=== PATIENT | male | born 1995 | race Caucasian/White ===

== ENCOUNTER 2018-05-08 19:46 | Emergency (ER) | payer BC, MEDICAID ==
[~2018-05-08] VITALS: Wt 82.2 kg
[2018-05-08] MEDS ORDERED: LIDOCAINE 1%/EPI 30 ML INJ INJ STA (20:03)
[2018-05-08] MEDS ORDERED: DIPHTH/TET/ACEL PERTUSS (ADULT) 0.5 ML VIAL IM* ONE (20:30)
[2018-05-08] MEDS ORDERED: LIDOCAINE 1%/EPI (MDV) 50 ML INJ INJ ONE (20:30)
[2018-05-08] MEDS ORDERED: LIDOCAINE 1%/EPI (1:100,000) (MDV) 20 ML INJ ONE (20:30)
[2018-05-08] MEDS ORDERED: CEPHALEXIN 500 MG CAP PO ONE (20:30)
[2018-05-08] MEDS ORDERED: CEPH-443 PO (21:30)
--- NOTE | 2018-05-08 21:41 | ERD ---
ER Documentation Chief Complaint Chief Complaint LAC TO LEFT CALF AFTER CLIMBING FENCE HPI 23-year-old male presents the emergency department presenting with a laceration to his left calf after climbing a fence and getting his calf stuck through the metal wire. Patient denies any restricted range of motion however he does have pain with certain motions. He does not remember his last tetanus. States bleeding is controlled. ROS All systems reviewed and are negative except as per history of present illness. Medications Home Meds Active Scripts Cephalexin* (Keflex*) 500 Mg Capsule, 500 MG PO QID for 7 Days, CAP Prov:CHANTAL ESPOSITO PA-C 05/08/18 Allergies Allergies: Coded Allergies: No Known Allergy (Unverified , 05/08/18) PMhx/Soc Medical and Surgical Hx: pt denies Medical Hx, pt denies Surgical Hx Hx Alcohol Use: No Hx Substance Use: No Hx Tobacco Use: No Smoking Status: Never smoker Physical Exam Vitals Vital Signs Date Temp Pulse Resp B/P (MAP) Pulse Ox O2 O2 Flow FiO2 Time Delivery Rate 05/08/18 97.6 102 18 123/63 97 19:49 (83) Physical Exam General: WD/WN, in no apparent distress, non-toxic appearing HENT: NC/AT Eyes: Conjunctiva normal Neck: Supple Pulm: Clear to auscultation, normal labored breathing; no wheezing/rales/rhonchi heard CV: Good capillary refill GI: Non-distended, no guarding Back: No masses Ext: Patient is able to move all toes, he had full range of motion of plantar flexion, extension. Full range of motion of knee. Sensation was intact. Neuro: Moves on all fours Skin: No foreign body noted, 6cm deep laceration to the left posterior middle leg Psych: Normal mood Results 24 hrs Current Medications Medications Dose Sig/Gabriela Start Time Status Last (Trade) Ordered Route PRN Stop Time Admin Dose Reason Admin Cephalexin 500 mg ONCE ONCE 05/08/18 DC 05/08/18 (Keflex) PO 20:30 20:18 05/08/18 20:31 Diphtheria/ 0.5 ml ONCE ONCE 05/08/18 DC 05/08/18 Tetanus/Acell IM* 20:30 20:18 Pertussis 05/08/18 (Adacel) 20:31 Lidocaine/ 50 ml ONCE ONCE 05/08/18 DC Epinephrine INJ 20:30 (Xylocaine 05/08/18 1%/ Epi 20:30 (Mdv)) Lidocaine/ 30 ml ONCE STAT 05/08/18 DC Epinephrine INJ 20:03 (Xylocaine 05/08/18 1%/ Epi 20:05 (Pf)) Lidocaine/ 40 ml ONCE ONCE 05/08/18 DC Epinephrine INJ 20:30 (Xylocaine 05/08/18 1%/ Epi 20:31 (Mdv) 20 ml) Procedures/MDM MDM: 23-year-old male patient presents to the ER with a laceration to the left posterior middle leg. My clinical suspicion for fracture, nerve/tendon/arterial injury, foreign body is low due to physical examination. In the ED, patient was given TDAP and prepared for wound closure. Procedure listed below.hemodynamically stable and neurovascularly intact pre and post treatment. Prescription keflex was given. 40-hour wound evaluation. Discussed to return to this facility or primary care physician in 10-14 days for suture removal. Discussed to return to the ER for any signs of infection or if condition worsens. Patient expressed agreement and understanding of the plan. PROCEDURE NOTE: Consent was obtained. Patient was positioned appropriately. Copious amount of normal saline was used for irrigation. Approximately 30cc of lidocaine with epinephrine was used as a local anesthetic. Patient was sterile draped with wound exposed. Wound was closed with good approximation with the absorbable 4-0 Vicryl sutures and 12 3-0 and 4-0 Prolene simple interrupted sutures. Procedure tolerated without complications. Departure Diagnosis: Primary Impression: Laceration Condition: Stable Patient Instructions: Laceration, Extrem (Suture, Staple, Or Tape) Referrals: NO PRIMARY,CARE PHYSICIAN (PCP) Additional Instructions: Follow up in 2 days in your clinic for wound check. Follow up with your physician to remove the stitches in 10-14 days. Take all medicines as directed. CHANTAL ESPOSITO PA-C May 08, 2018 21:41
[2018-05-08 21:48] VITALS: BP 115/57; PULSE 87; RESP 19
== END 2018-05-08 21:48 | disposition home or self-care (01) ==
LOC: FTE 19:46
DX: S81.812A Laceration without foreign body, left lower leg, initial encounter (principal); W26.8XXA Contact with other sharp object(s), not elsewhere classified, initial encounter; Y92.9 Unspecified place or not applicable; Z23 Encounter for immunization
CPT/HCPCS: 12002; 73590; 90471; 90715; Z7502; Z7610

== ENCOUNTER 2018-07-20 09:05 | Emergency (ER) | payer MEDICAID, OTHER ==
[~2018-07-20] VITALS: Ht 177.8 cm; Wt 79.0 kg
[~2018-07-20 09:05] MED LIST: CEPH-443 PO
[2018-07-20 09:13] VITALS: BP 104/54; PULSE 83; RESP 19; Ht 177.8 cm; Wt 79.0 kg
--- NOTE | 2018-07-20 10:18 | ERD ---
ER Documentation Chief Complaint Chief Complaint RE CHECK HPI 23-year-old male presenting for suture removal of his left calf. Patient had sutures placed May 09 and has been unable to visit the ER to have sutures removed until today's date. Patient denies any complications. Denies any pain. Denies any fevers or swelling. Denies any purulence. Denies other medical problems. NKDA. Surgical history denies. Social history denies ROS All systems reviewed and are negative except as per history of present illness. Medications Home Meds Active Scripts Cephalexin* (Keflex*) 500 Mg Capsule, 500 MG PO QID for 7 Days, CAP Prov:CHANTAL ESPOSITO PA-C 05/08/18 Allergies Allergies: Coded Allergies: No Known Allergy (Unverified , 05/08/18) PMhx/Soc Medical and Surgical Hx: pt denies Medical Hx, pt denies Surgical Hx Hx Alcohol Use: Yes (FORMER) Hx Substance Use: No Hx Tobacco Use: No FmHx Family History: No diabetes, No coronary disease, No other Physical Exam Vitals Vital Signs Date Temp Pulse Resp B/P (MAP) Pulse Ox O2 O2 Flow FiO2 Time Delivery Rate 07/20/18 97.8 83 19 104/54 99 09:13 (71) Physical Exam GENERAL: The patient is well-appearing, well-nourished, in no acute distress CHEST: Clear to auscultation bilaterally. There are no rales, wheezes or rhonchi. HEART: Regular rate and rhythm. No murmurs, clicks, rubs or gallops. EXTREMITIES: Equal pulses bilaterally. There is no peripheral clubbing, cyanosis or edema. No focal swelling or erythema. Full range of motion. Grossly neurovascularly intact. NEUROLOGIC: Alert and oriented. Cranial nerves II through XII intact. Motor strength in all 4 extremities with 5 out of 5 strength. Sensation grossly intact. Normal speech and gait. SKIN: Healed laceration site noted to the inferior aspect of the left calf. There is no surrounding erythema or dehiscence of the wound. No purulence or fluctuance. Procedures/MDM ER course: 7 sutures removed without complication. MDM: 23-year-old male presenting for suture removal. I have low suspicion for wound infection. I have low suspicion for complication. Patient is discharged with supportive medications and told to follow-up with primary care within 1-2 days for close evaluation all questions answered at discharge Departure Diagnosis: Primary Impression: Encounter for removal of sutures Condition: Stable Patient Instructions: Suture Removal, No Complication Referrals: [facility] YOU HAVE RECEIVED A MEDICAL SCREENING EXAM AND THE RESULTS INDICATE THAT YOU DO NOT HAVE A CONDITION THAT REQUIRES URGENT TREATMENT IN THE EMERGENCY DEPARTMENT. FURTHER EVALUATION AND TREATMENT OF YOUR CONDITION CAN WAIT UNTIL YOU ARE SEEN IN YOUR DOCTORS OFFICE WITHIN THE NEXT 1-2 DAYS. IT IS YOUR RESPONSIBILITY TO MAKE AN APPOINTMENT FOR FOLOW-UP CARE. IF YOU HAVE A PRIMARY DOCTOR --you should call your primary doctor and schedule an appointment IF YOU DO NOT HAVE A PRIMARY DOCTOR YOU CAN CALL OUR PHYSICIAN REFERRAL HOTLINE AT IF YOU CAN NOT AFFORD TO SEE A PHYSICIAN YOU CAN CHOSE FROM THE FOLLOWING [facility] [address] [facility] [facility] [address] [facility] [facility] [address] [facility] [address] [facility]. [facility] [address] [facility]. [facility] [address] Additional Instructions: FOLLOW UP WITH YOUR PRIMARY CARE PHYSICIAN TOMORROW.Return to this facility if you are not improving as expected. MASSIEL GUZMAN PA-C Jul 20, 2018 10:18
== END 2018-07-20 09:53 | disposition home or self-care (01) ==
LOC: FTE 09:05
DX: Z48.02 Encounter for removal of sutures (principal)
CPT/HCPCS: 99281